=== PATIENT | male | born 1975 | race Caucasian/White ===

== ENCOUNTER 2017-08-10 14:24 | Outpatient (CLI) | payer OTHER ==
--- NOTE | 2017-08-11 17:49 | XRAY Report ---
TWO VIEW CHEST: 08/10/2017 CLINICAL INDICATION: Followup pneumonia. COMPARISON: Films from [place], [place] dated 08/05/2017. FINDINGS: Frontal and lateral views of the chest demonstrate a normal cardiac silhouette. Right basilar infiltrate has increased, with increase in right effusion. The left lung remains clear. No pneumothorax. IMPRESSION: INCREASING RIGHT BASILAR INFILTRATE AND RIGHT EFFUSION. TD: 08/11/2017 16:00
== END 2017-08-10 14:25 | disposition home or self-care (01) ==
LOC: DI 14:24
PROVIDERS: ATTEND Nurse Practitioner Family
DX: J18.9 Pneumonia, unspecified organism (principal); R05 Cough
CPT/HCPCS: 71046

== ENCOUNTER 2017-09-09 11:48 | Outpatient (CLI) | payer OTHER ==
--- NOTE | 2017-09-09 12:24 | XRAY Report ---
Procedure Date: 09/09/2017 Accession Number: [id number] / [id number] Procedure: XRS - Chest 2 View X-Ray CPT Code: 44184 FULL RESULT: EXAM: Chest 2 View X-Ray DATE: 09/09/2017 12:04 PM CLINICAL HISTORY: PNEUMONIA for follow-up COMPARISON: 08/10/2017 TECHNIQUE: 2 views. FINDINGS: Lungs/Pleura: No focal opacities evident. No pneumothorax or pleural effusion. Normal volumes. Mediastinum: Top normal heart size.. Other: Resolution of the previously seen right pleural effusion and basilar airspace disease since 08/10/2017. IMPRESSION: No acute findings 2-view chest radiography. [facility]
== END 2017-09-09 11:49 | disposition home or self-care (01) ==
LOC: DI.S 11:48
PROVIDERS: ATTEND Internal Medicine
DX: R05 Cough (principal); R06.2 Wheezing
CPT/HCPCS: 71046